=== PATIENT | male | born 1995 ===

== ENCOUNTER 2017-06-19 19:55 | Emergency (ER) | payer MEDICAID ==
--- NOTE | 2017-06-19 20:36 | C.PDOC ---
History Of Present Illness 22 year old male presents to the ED c/o intermittent fever associated with 1 episode of vomit that started Tuesday. Patient denies chills, diarrhea, abdominal pain, recent travel , sick contacts. Time Seen by Provider: 06/19/17 20:08 Chief Complaint (Nursing): Fever History Per: Patient History/Exam Limitations: no limitations Onset/Duration Of Symptoms: Days Current Symptoms Are (Timing): Gone Sick Contacts (Context): None Associated Symptoms: Fever Ear Symptoms: Bilateral: None Severity: None Recent travel outside of the [place]: No Additional History Per: Patient Past Medical History Reviewed: Historical Data, Nursing Documentation, Vital Signs Vital Signs: Last Vital Signs Temp 99.1 F 06/19/17 22:32 Pulse 81 06/19/17 22:32 Resp 18 06/19/17 22:32 BP 104/67 06/19/17 22:32 Pulse Ox 98 06/19/17 23:18 - Medical History PMH: No Chronic Diseases Surgical History: No Surg Hx Family History: States: Unknown Family Hx - Social History Hx Alcohol Use: No Hx Substance Use: No - Immunization History Hx Tetanus Toxoid Vaccination: No Hx Influenza Vaccination: No Hx Pneumococcal Vaccination: No Review Of Systems Constitutional: Positive for: Fever. Negative for: Chills ENT: Negative for: Nose Discharge, Nose Congestion, Throat Pain, Throat Swelling Respiratory: Negative for: Cough Gastrointestinal: Positive for: Vomiting. Negative for: Nausea, Abdominal Pain Skin: Negative for: Rash Neurological: Negative for: Weakness, Numbness Physical Exam - Physical Exam Appears: Non-toxic, No Acute Distress Skin: Normal Color, Warm, Dry Head: Atraumatic, Normacephalic Eye(s): bilateral: Normal Inspection Ear(s): Bilateral: Normal Nose: No Discharge Oral Mucosa: Moist Throat: Normal, No Erythema, No Exudate Neck: Normal ROM, Supple Chest: Symmetrical Cardiovascular: Rhythm Regular, No Murmur Respiratory: Normal Breath Sounds, No Rales, No Rhonchi, No Wheezing Gastrointestinal/Abdominal: Soft, No Tenderness, No Guarding, No Rebound Extremity: Normal ROM Neurological/Psych: Oriented x3 Gait: Steady ED Course And Treatment - Laboratory Results Result Diagrams: 06/19/17 20:57 06/19/17 20:57 O2 Sat by Pulse Oximetry: 98 (On RA) Pulse Ox Interpretation: Normal - Radiology CXR: Interpreted by Me CXR Interpretation: Yes: No Acute Disease Medical Decision Making Medical Decision Making: Impression: Fever and vomit Plan: * Labs * CXR * Influenza A B test * UA Patient is resting comfortably, tolerating PO, and is afebrile at this time. Clinical signs and symptoms are not suggestive of sepsis, meningitis, UTI, pneumonia, intra-abdominal pathology, or cellulitis. Patient will be discharge home, and instructed to follow up with his/her physician in 1-2 days without fail. Patient was instructed to return for any worsening symptoms, persistent fever, neck pain, rash, abdominal pain, or vomiting. Disposition - Disposition Disposition: HOME/ ROUTINE Disposition Time: 23:17 Condition: STABLE Additional Instructions: Follow up with your PMD within 1-2 days. Return to ED if feel worse. 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 - Scribe Statement The provider has reviewed the documentation as recorded by the Scribe Moisés Blackwell All medical record entries made by the Scribe were at my direction and personally dictated by me. I have reviewed the chart and agree that the record accurately reflects my personal performance of the history, physical exam, medical decision making, and the department course for this patient. I have also personally directed, reviewed, and agree with the discharge instructions and disposition.
[2017-06-19 21:03] LABS: BASO % 0.2 % (0.0-2.0); EOS % 0.2 % (0.0-4.0); HEMOGLOBIN 13.2 g/dL (12.0-18.0); LYMPH # 1.2 K/uL (1.0-4.3); LYMPH % 30.6 % (20.0-40.0); MEAN CELL VOLUME 88.9 fL (80.0-94.0); MEAN CORPUSCULAR HEMOGLOBIN 30.1 pg (27.0-31.0); MEAN CORPUSCULAR HGB CONC 33.8 g/dL (33.0-37.0); MEAN PLATELET VOLUME 9.5 fL (7.2-11.7); MONO # 0.5 K/uL (0.0-0.8); MONO % 13.5 % (0.0-10.0); NEUT # 2.1 K/uL (1.8-7.0); NEUT % 55.5 % (50.0-75.0); NRBC % 0.2 % (0.0-2.0); RBC 4.39 Mil/uL (4.40-5.90); RED CELL DISTRIBUTION WIDTH 12.6 % (11.5-14.5); WHITE BLOOD COUNT 3.8 K/uL (4.8-10.8)
[2017-06-19 21:10] LABS: URINE BACTERIA OCC (<OCC); URINE BILIRUBIN NEGATIVE (NEGATIVE); URINE BLOOD NEGATIVE (NEGATIVE); URINE CLARITY Clear (Clear); URINE COLOR Yellow (YELLOW); URINE GLUCOSE (UA) NORMAL (Normal); URINE LEUKOCYTE ESTERASE NEG Leu/uL (Negative); URINE PROTEIN 1+ mg/dL (NEGATIVE); URINE UROBILINOGEN NORMAL mg/dL (0.2-1.0)
[2017-06-19 21:24] LABS: ALB/GLOB RATIO 1.4 (1.0-2.1); ALBUMIN 4.7 g/dL (3.5-5.0); ALT/SGPT 34 U/L (21-72); AST/SGOT 34 U/L (17-59); BLOOD UREA NITROGEN 16 mg/dL (9-20); CALCIUM 8.7 mg/dl (8.6-10.4); GFR AFRICAN-AMERICAN > 60; GFR NON-AFRICAN AMERICAN > 60
[2017-06-19 22:33] VITALS: BP 104/67; PULSE 81; RESP 18; TEMP 99.1
[2017-06-19 22:53] VITALS: O2SAT 98
== END 2017-06-19 23:47 | disposition home or self-care (01) ==
LOC: C.ER 19:55
DX: J11.1 Influenza due to unidentified influenza virus with other respiratory manifestations (principal)

== ENCOUNTER 2017-12-31 08:00 | Emergency (ER) | payer MEDICAID ==
--- NOTE | 2017-12-31 08:09 | C.PDOC ---
History Of Present Illness 22 y/o male, with PMHx of HIV (compliant with meds and per pt normal last CD4 recently 1 month ago), presents to ED for evaluation of cough and chest pain for the past 2 days. Pt states he is not able to sleep at night because of the dry cough and has developed chest pain due to excessive coughing. Notes pain is worse with deep breathing. Pain is localized in the left side of the chest below the left nipple. Notes taking Ibuprofen 200mg yesterday with improvement. No hx of blood clots, recently leg swelling, GRAY, orthopnea or pnd. First time occurence of chest pain. Otherwise, denies shortness of breath, palpitation, diaphoresis, abdominal pain, n/v/d, or fever. No GI or complaints or rashes. Time Seen by Provider: 12/31/17 08:08 Chief Complaint (Nursing): Chest Pain History Per: Patient History/Exam Limitations: no limitations Onset/Duration Of Symptoms: Days Current Symptoms Are (Timing): Still Present Quality: "Pain" Associated Symptoms: denies: Nausea, Diaphoresis, Syncope Exacerbating Factors: Deep Breathing Recent travel outside of the [place]: No Additional History Per: Patient Past Medical History Reviewed: Historical Data, Nursing Documentation, Vital Signs Family History: States: Unknown Family Hx - Social History Hx Alcohol Use: No Hx Substance Use: No - Immunization History Hx Tetanus Toxoid Vaccination: No Hx Influenza Vaccination: No Hx Pneumococcal Vaccination: No Review Of Systems Except As Marked, All Systems Reviewed And Found Negative. Constitutional: Negative for: Fever, Chills Cardiovascular: Positive for: Chest Pain. Negative for: Palpitations, Light Headedness Respiratory: Positive for: Cough. Negative for: Shortness of Breath, Sputum Gastrointestinal: Negative for: Nausea, Vomiting, Abdominal Pain, Constipation Neurological: Negative for: Headache, Dizziness Physical Exam - Physical Exam Appears: Non-toxic, No Acute Distress Skin: Normal Color, Warm, Dry Head: Atraumatic, Normacephalic Eye(s): bilateral: Normal Inspection Oral Mucosa: Moist Neck: Normal ROM, Supple Chest: Symmetrical, No Deformity, Tenderness (reproducible tenderness to inferior aspect of left nipple upon palpation) Cardiovascular: Rhythm Regular, No Murmur Respiratory: Normal Breath Sounds, No Rales, No Rhonchi, No Wheezing Gastrointestinal/Abdominal: Bowel Sounds, Soft, No Tenderness Back: No CVA Tenderness Extremity: Normal ROM, No Pedal Edema, No Deformity Extremity: Bilateral: Atraumatic Neurological/Psych: Oriented x3, Normal Speech ED Course And Treatment - Laboratory Results Result Diagrams: 12/31/17 08:52 12/31/17 08:52 ECG: Interpreted By Me, Viewed By Me ECG Rhythm: Sinus Rhythm ECG Interpretation: No Acute Changes Interpretation Of ECG: No STEMI. Rate From EC (bpm) O2 Sat by Pulse Oximetry: 100 (RA) Pulse Ox Interpretation: Normal Medical Decision Making Medical Decision Making: Well appearing 22 yr old male w/ hx of HIV well controlled p/w chest pain. Reproducible upon palpation. No Meningeal sign or GI or complaints. Low pretest wells, PERCed out. Non cardiac CP, atypical, age, no rf, no alarming signs. ekg w/ out diffuse st elevations. lungs cta b/l. Chest pain likely MSK, related to cough/ bronchitis. Will seek pain control, imaging and labs Plan: Blood work CXR EKG Motrin Ibuprofen 1020 labs reviewed: unremarkable imaging reviewed: unremarkable pain improved likely costochronditis / bronchitis. will rx and have pt f/u Disposition - Disposition Disposition Time: 10:00 Condition: GOOD Forms: [facility] (Guyanese) - Clinical Impression Clinical Impression: Chest discomfort, Bronchitis, Chest wall discomfort - Scribe Statement The provider has reviewed the documentation as recorded by the Scribe KP All medical record entries made by the Scribe were at my direction and personally dictated by me. I have reviewed the chart and agree that the record accurately reflects my personal performance of the history, physical exam, medical decision making, and the department course for this patient. I have also personally directed, reviewed, and agree with the discharge instructions and disposition.
[2017-12-31 08:21] VITALS: O2SAT 100
[2017-12-31 09:04] LABS: BASO % 0.6 % (0.0-2.0); EOS # 0.2 K/uL (0.0-0.7); EOS % 3.3 % (0.0-4.0); HEMOGLOBIN 12.5 g/dL (12.0-18.0); LYMPH # 2.5 K/uL (1.0-4.3); LYMPH % 46.3 % (20.0-40.0); MEAN CELL VOLUME 87.9 fL (80.0-94.0); MEAN CORPUSCULAR HEMOGLOBIN 30.2 pg (27.0-31.0); MEAN CORPUSCULAR HGB CONC 34.3 g/dL (33.0-37.0); MEAN PLATELET VOLUME 8.7 fL (7.2-11.7); MONO # 0.8 K/uL (0.0-0.8); MONO % 13.9 % (0.0-10.0); NEUT % 35.9 % (50.0-75.0); RBC 4.14 Mil/uL (4.40-5.90); RED CELL DISTRIBUTION WIDTH 12.7 % (11.5-14.5); WHITE BLOOD COUNT 5.5 K/uL (4.8-10.8)
[2017-12-31 09:25] LABS: ALB/GLOB RATIO 1.5 (1.0-2.1); ALBUMIN 4.6 g/dL (3.5-5.0); ALT/SGPT 33 U/L (21-72); AST/SGOT 28 U/L (17-59); BLOOD UREA NITROGEN 10 mg/dL (9-20); CALCIUM 9.8 mg/dl (8.6-10.4); GFR NON-AFRICAN AMERICAN > 60
[2017-12-31 10:48] VITALS: BP 102/67; PULSE 76; RESP 18; TEMP 98.3
--- NOTE | 2017-12-31 14:43 | RAD ---
Date of service: 12/31/2017 HISTORY: Chest pain with left sided, cough COMPARISON: Comparison chest 06/19/2017 TECHNIQUE: Chest PA and lateral FINDINGS: LUNGS: No active pulmonary disease. PLEURA: No significant pleural effusion identified. No pneumothorax apparent. CARDIOVASCULAR: Normal. OSSEOUS STRUCTURES: No significant abnormalities. VISUALIZED UPPER ABDOMEN: Normal. OTHER FINDINGS: None. IMPRESSION: No active disease.
--- NOTE | 2018-01-02 22:47 | CARD ---
APPROVED REPORT Date of service: 12/31/2017 EKG Measurement Heart [id number] <Conclusion> Normal sinus rhythm Normal ECG
== END 2017-12-31 11:01 | disposition home or self-care (01) ==
LOC: C.ER 08:00
DX: J40 Bronchitis, not specified as acute or chronic (principal); R07.89 Other chest pain

== ENCOUNTER 2018-08-28 22:26 | Emergency (ER) | payer MEDICAID ==
--- NOTE | 2018-08-29 00:29 | C.PDOC ---
History Of Present Illness 23 year old male with PMHx of G6PD presents to the ED c/o generalized body aches, malaise, cough, sore throat. Patient also c/o left rib cage pain after coughing, requests a CXR. Patient reports due to his history of G6PD he was cautioned against taking Tylenol, advised to take Motrin instead. Patient took motrin at 11 am. Pt denies fever, chills, headache, CP, SOB, injury, fall, trauma. Time Seen by Provider: 08/28/18 22:59 Chief Complaint (Nursing): Cough, Cold, Congestion History Per: Patient History/Exam Limitations: no limitations Onset/Duration Of Symptoms: Days Current Symptoms Are (Timing): Still Present Location Of Pain: Throat, Sinus/es, Diffuse Myalgias Associated Symptoms: Sore Throat, Cough, Myalgias. denies: Fever Ear Symptoms: Bilateral: None Recent travel outside of the [place]: No Additional History Per: Patient Past Medical History Reviewed: Historical Data, Nursing Documentation, Vital Signs Vital Signs: Last Vital Signs Temp 101 F H 08/28/18 22:47 Pulse 96 H 08/28/18 22:47 Resp 20 08/28/18 22:47 BP 143/85 08/28/18 22:47 Pulse Ox 97 08/28/18 22:47 Primary Care Provider: Ivana Riley Medical History PMH: HIV Other PMH: G6PD Surgical History: No Surg Hx Family History: States: Unknown Family Hx - Social History Hx Alcohol Use: Yes Hx Substance Use: No - Immunization History Hx Tetanus Toxoid Vaccination: No Hx Influenza Vaccination: No Hx Pneumococcal Vaccination: No Review Of Systems Constitutional: Negative for: Fever, Chills ENT: Positive for: Nose Discharge, Nose Congestion, Throat Pain Cardiovascular: Positive for: Chest Pain (left rib cage) Respiratory: Positive for: Cough. Negative for: Shortness of Breath Gastrointestinal: Negative for: Nausea, Vomiting, Abdominal Pain Skin: Negative for: Rash Neurological: Negative for: Headache, Dizziness Physical Exam - Physical Exam Appears: Non-toxic, No Acute Distress Skin: Normal Color, Warm, Dry, No Rash Head: Atraumatic, Normacephalic Eye(s): bilateral: Normal Inspection Ear(s): Bilateral: Normal Nose: No Discharge Oral Mucosa: Moist Throat: Normal, No Erythema, No Exudate Neck: Normal ROM, Supple Chest: Symmetrical, No Tenderness Cardiovascular: Rhythm Regular Respiratory: Normal Breath Sounds, No Rales, No Rhonchi, No Wheezing Extremity: Normal ROM Neurological/Psych: Oriented x3, Normal Speech, Normal Cognition Gait: Steady ED Course And Treatment O2 Sat by Pulse Oximetry: 97 (ON RA) Pulse Ox Interpretation: Normal - Radiology CXR: Interpreted by Me, Viewed By Me CXR Interpretation: Yes: No Acute Disease. No: Infiltrates Progress Note: Plan: - CXR. - Motrin 600 mg PO. Imaging results were discussed with patient, due to his G6PD patient advsied to only take Motrin for pain. Patient advised to follow up with PMD fir further evaluation. 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 - Scribe Statement The provider has reviewed the documentation as recorded by the Scribe Moisés Blackwell All medical record entries made by the Scribe were at my direction and personally dictated by me. I have reviewed the chart and agree that the record accurately reflects my personal performance of the history, physical exam, medical decision making, and the department course for this patient. I have also personally directed, reviewed, and agree with the discharge instructions and disposition.
[2018-08-29 00:42] VITALS: BP 132/79; PULSE 84; RESP 18; TEMP 98.5
[2018-08-29 00:56] VITALS: O2SAT 97
--- NOTE | 2018-08-29 09:44 | RAD ---
Date of service: 08/28/2018 HISTORY: cough, fever, pleuritic chest pain COMPARISON: Chest x-ray 12/31/2017 TECHNIQUE: Chest PA and lateral FINDINGS: LUNGS: No focal consolidation is seen. PLEURA: No pleural effusion is identified. CARDIOVASCULAR: Heart size is within normal limits. No atherosclerotic calcification present. OSSEOUS STRUCTURES: Acute fracture identified. VISUALIZED UPPER ABDOMEN: Unremarkable. OTHER FINDINGS: None. IMPRESSION: No acute cardiopulmonary process seen.
== END 2018-08-29 00:42 | disposition home or self-care (01) ==
LOC: C.ER 22:26
DX: J06.9 Acute upper respiratory infection, unspecified (principal)